=== PATIENT | female | born 1945 | race Caucasian/White ===

== ENCOUNTER 2019-07-15 08:24 | Outpatient (CLI) | payer MEDICARE ==
--- NOTE | 2019-07-15 10:17 | MMO ---
Bilateral MAMMO Bilat Diag DDI+LISA. CLINICAL HISTORY: Patient is 74 years old and is seen for diagnostic exam and palpable abnormality in the left breast. The patient has no family history of breast cancer. The patient has no personal history of cancer. The patient has a history of left Excisional Biopsy in August, - Benign. VIEWS: The views performed were: bilateral craniocaudal with tomosynthesis; bilateral mediolateral oblique with tomosynthesis; and bilateral mediolateral with tomosynthesis. FILMS COMPARED: The present examination has been compared to prior imaging studies performed at [facility] on 06/02/2014, 05/28/2017 and 07/15/2019. This study has been interpreted with the assistance of computer-aided detection. MAMMOGRAM FINDINGS: Finding 1: There are stable benign appearing calcifications seen in both breasts. Finding 2: There are stable focal asymmetries with circumscribed margins seen in both breasts. Finding 3: There is a new irregular mass measuring 15 millimeters with spiculated margins seen in the anterior region of the left breast at 4 o'clock. Mass is the palpble finding. Finding 4: There is a new mass measuring 6 millimeters with indistinct margins seen in the anterior region of the right breast at 6 o'clock. IMPRESSION: FINDING 1: STABLE CALCIFICATIONS IN BOTH BREASTS ARE BENIGN. FINDING 2: STABLE FOCAL ASYMMETRIES IN BOTH BREASTS ARE BENIGN. FINDING 3: NEW MASS IN THE LEFT BREAST IS SUSPICIOUS. AN ULTRASOUND-GUIDED BREAST BIOPSY IS RECOMMENDED. SOLID IRREGULAR MASS ON ULTRASOUND FINDING 4: NEW MASS IN THE RIGHT BREAST IS SUSPICIOUS. AN ULTRASOUND-GUIDED BREAST BIOPSY IS RECOMMENDED. SOLID IRREGULAR MASS ON ULTRASOUND. THE RESULTS OF THIS EXAM WERE SENT TO THE PATIENT. ACR BI-RADS Category 4 - Suspicious abnormality - biopsy should be considered MAMMOGRAPHY NOTE: 1. A negative mammogram report should not delay a biopsy if a dominant of clinically suspicious mass is present. 2. Approximately 10% to 15% of breast cancers are not detected by mammography. 3. Adenosis and dense breasts may obscure an underlying neoplasm. Reported by: NAHID ENCARNACION MD Electonically Signed: [id number]
--- NOTE | 2019-07-15 11:11 | ULT ---
RIGHT BREAST ULTRASOUND LIMITED: HISTORY: Right breast ultrasound was performed with attenuation to an asymmetric density seen on today's mammo gram. FINDINGS: The right breast was evaluated in the 6 o'clock region with a poorly circumscribed solid gasper measurin g 0.5 x 0.8 x 0.8 cm demonstrated in the 6 o'clock position 2 cm from the nipple. I feel that this m ass does correspond to the mammographic area of concern. Given its appearance on ultrasound and mamm ogram, ultrasound-guided biopsy is recommended. IMPRESSION: BIRADS category 4, suspicious finding. Ultrasound-guided biopsy of the poorly circumscribed mass at 6 o'clock 2 cm from the nipple is recommended. The patient was notified of these findings and proceeded to scheduling for this ultrasound-guided bio psy. CODE CR POS: OFF
--- NOTE | 2019-07-15 11:13 | ULT ---
LEFT BREAST ULTRASOUND: HISTORY: The patient presents with a palpable finding in the left breast. Assess with diagnostic mammogram and left breast ultrasound. FINDINGS: In the region of the palpable finding, at 4 o'clock, 3 cm from the nipple, there is a poorly circumsc ribed, irregular, solid mass, measuring 0.9 x 1.2 x 1.4 cm in size. This corresponds to the abnormal mass on mammogram, as well as the palpable finding. The left axilla was evaluated and no abnormal enl arged lymph nodes were demonstrated. IMPRESSION: BI-RADS category 4 - suspicious finding. Ultrasound-guided biopsy is recommended. After discussion of this with the patient, the patient proceeded to being scheduled for ultrasound gu ided biopsy. POS: OFF
== END 2019-07-15 08:25 | disposition home or self-care (01) ==
LOC: BICMAMMO 08:24
PROVIDERS: ATTEND Family Medicine
DX: N63.20 Unspecified lump in the left breast, unspecified quadrant (principal); R92.1 Mammographic calcification found on diagnostic imaging of breast; N64.89 Other specified disorders of breast; N63.10 Unspecified lump in the right breast, unspecified quadrant
CPT/HCPCS: 76642 ×2; 77066; G0279

== ENCOUNTER → 2019-07-22 | Day surgery (SDC) | payer MEDICARE ==
--- NOTE | 2019-07-22 14:07 | MMO ---
Right Breast MAMMO Unilat Diag DDI RT. CLINICAL HISTORY: Patient is 74 years old and is seen for diagnostic exam. The patient has no family history of breast cancer. The patient has no personal history of cancer. The patient has a history of left Ultrasound Guided Core Biopsy in July,, right Ultrasound Guided Core Biopsy in July, and left Excisional Biopsy in August, - Benign. VIEWS: The views performed were: right craniocaudal and right mediolateral oblique. FILMS COMPARED: The present examination has been compared to prior imaging studies performed at [facility] on 07/15/2019 and 07/22/2019. This study has been interpreted with the assistance of computer-aided detection. MAMMOGRAM FINDINGS: There are scattered fibroglandular densities. Small mass again noted in the 6 o'clock position of the right breast. There is a post biopsy clip immediately adjacent to the lesion following US guided biopsy. IMPRESSION: FINDING IN THE RIGHT BREAST IS SUSPICIOUS. BIOPSY IS RECOMMENDED. THE RESULTS OF THIS EXAM WERE SENT TO THE PATIENT. ACR BI-RADS Category 4 - Suspicious abnormality - biopsy should be considered MAMMOGRAPHY NOTE: 1. A negative mammogram report should not delay a biopsy if a dominant of clinically suspicious mass is present. 2. Approximately 10% to 15% of breast cancers are not detected by mammography. 3. Adenosis and dense breasts may obscure an underlying neoplasm. Reported by: PAVAN ROLAND MD Electonically Signed: [id number]
--- NOTE | 2019-07-22 14:10 | MMO ---
Left Breast MAMMO Unilat Diag DDI LT. CLINICAL HISTORY: Patient is 74 years old and is seen for diagnostic exam. The patient has no family history of breast cancer. The patient has no personal history of cancer. The patient has a history of left Ultrasound Guided Core Biopsy in July,, right Ultrasound Guided Core Biopsy in July, and left Excisional Biopsy in August, - Benign. VIEWS: The views performed were: left craniocaudal and left mediolateral oblique. FILMS COMPARED: The present examination has been compared to prior imaging studies performed at [facility] on 07/15/2019 and 07/22/2019. This study has been interpreted with the assistance of computer-aided detection. MAMMOGRAM FINDINGS: There are scattered fibroglandular densities. There is a stable irregular mass with associated biopsy clip seen in the left breast. IMPRESSION: STABLE MASS IN THE LEFT BREAST IS SUSPICIOUS. BIOPSY IS RECOMMENDED. THE RESULTS OF THIS EXAM WERE SENT TO THE PATIENT. ACR BI-RADS Category 4 - Suspicious abnormality - biopsy should be considered MAMMOGRAPHY NOTE: 1. A negative mammogram report should not delay a biopsy if a dominant of clinically suspicious mass is present. 2. Approximately 10% to 15% of breast cancers are not detected by mammography. 3. Adenosis and dense breasts may obscure an underlying neoplasm. Reported by: PAVAN ROLAND MD Electonically Signed: [id number]
--- NOTE | 2019-07-22 15:53 | ULT ---
ULTRASOUND GUIDED CORE BIOPSY RIGHT BREAST MASS ULTRASOUND GUIDED CORE BIOPSY LEFT BREAST MASS: 07/22/19 HISTORY: Suspicious hypoechoic masses noted bilaterally for which ultrasound guided core biopsy was recommende d. FINDINGS: Informed consent obtained prior to the procedure. Preprocedural imaging demonstrates a hypoechoic irregular solid mass at the 6 o'clock position of the right breast 2 cm from the nipple. Skin overlying this lesion was prepped and draped in the normal s terile fashion and anesthetized with 1% buffered lidocaine. With direct sonographic guidance, three 1 2 gauge core biopsies were obtained through the lesion. Post biopsy clip was placed. Then, assessment of the left breast demonstrates an irregular hypoechoic lesion at the 4 o'clock posi tion 3 cm from the nipple measuring up to approximately 1 cm. Skin overlying this region was prepped and draped in a normal sterile fashion and anesthetized with 1% buffered lidocaine. With direct sonog raphic guidance, three 12 gauge core biopsies were obtained. A post biopsy clip was placed. Post procedural mammogram demonstrates proper placement/location of both post biopsy clips. The patie nt tolerated the procedure well. No postprocedural complications. IMPRESSION: 1. Successful ultrasound guided core biopsy of right breast mass at 6 o'clock position. 2. Successful ultrasound guided core biopsy of left breast mass at 4 o'clock position. POS: OFF
== END ==
LOC: BICULT 12:47
PROVIDERS: ATTEND Family Medicine
PROC: 0H9V3ZX Drainage of Bilateral Breast, Percutaneous Approach, Diagnostic (ICD-10-PCS; principal; 2019-07-22)
DX: C50.512 Malignant neoplasm of lower-outer quadrant of left female breast (principal); D24.1 Benign neoplasm of right breast
CPT/HCPCS: 19083; 88305; 88341; 88342

== ENCOUNTER 2019-08-06 09:16 | Outpatient (CLI) | payer MEDICARE ==
--- NOTE | 2019-08-06 12:46 | RAD ---
EXAM: Chest 2 views: HISTORY: Preoperative radiograph COMPARISON: 08/02/2011 FINDINGS: There is a normal-sized cardiomediastinal silhouette. There is no evidence of consolidation, mass, or pleural effusion. The bones are unremarkable. IMPRESSION: No evidence of acute cardiopulmonary disease
[2019-08-06 12:51] LABS: #Eosinphils 0.2 thou/uL (0.0-0.7); #Lymphocytes 1.9 thou/uL (1.20-3.40); #Monocytes 0.4 thou/uL (0.11-0.59); #Neutrophils 4.2 thou/uL (1.40-6.50); %Basophils 0.4 % (0.0-1.0); %Eosinophils 2.9 % (0.0-10.0); %Lymphocytes 28.3 % (21.0-51.0); %Monocytes 6.1 % (0.0-10.0); %Neutrophils 62.4 % (42.0-75.0); Hemoglobin 15.3 g/dL (12.0-16.0); Mean Corpuscular HGB CONC 34.4 g/dL (32.0-36.0); Mean Corpuscular Hemoglobin 32.5 pg (27.0-31.0); Mean Corpuscular Volume 94.3 fL (78.0-98.0); Mean Platelet Volume 8.7 fL (7.4-10.4); Platelet Count 240 thou/uL (130-400); RBC Distribution Width 11.6 % (11.5-14.5); Red Blood Cell (RBC) Count 4.72 mill/uL (4.20-5.40); White Blood Cell (WBC) Count 6.7 thou/uL (4.8-10.8)
[2019-08-06 13:22] LABS: ALT (SGPT) 22 U/L (8-55); AST (SGOT) 18 U/L (5-34); Albumin 4.5 g/dL (3.4-4.8); Alkaline Phosphatase 71 U/L (40-110); Anion Gap 14 mmol/L (10-20); BUN (Urea Nitrogen) 19 mg/dL (9.8-20.1); Bilirubin, Total 0.5 mg/dL (0.2-1.2); Calc. Creatinine Clearance 0 mL/min (70-130); Calcium 9.5 mg/dL (7.8-10.44); Carbon Dioxide 24 mmol/L (23-31); Chloride 108 mmol/L (98-107); Estimated GFR-MDRD 60; Globulin 2.8 g/dL (2.4-3.5); Glucose 236 mg/dL (83-110); Potassium 4.3 mmol/L (3.5-5.1); Protein, Total 7.3 g/dL (6.0-8.3); Sodium 142 mmol/L (136-145)
--- NOTE | 2019-08-09 18:57 | EKG ---
Test Reason : Blood Pressure : / mmHG Vent. Rate : 072 BPM Atrial Rate : 072 BPM P-R Int : 168 ms QRS Dur : 128 ms QT Int : 396 ms P-R-T Axes : 038 -41 049 degrees QTc Int : 433 ms Normal sinus rhythm Left axis deviation Left ventricular hypertrophy with QRS widening Abnormal ECG When compared with ECG of 16-NOV-2012 12:29, Minimal criteria for Septal infarct are no longer Present Confirmed by DESTINEE PAYNE, SRené ([id number]) on 08/09/2019 6:56:59 PM Referred By: ESTHER Confirmed By:DR. Nasreen FELIPE MD
== END 2019-08-06 09:17 | disposition home or self-care (01) ==
LOC: LABBT 09:16
PROVIDERS: ATTEND Specialist
DX: Z01.818 Encounter for other preprocedural examination (principal); N63.10 Unspecified lump in the right breast, unspecified quadrant
CPT/HCPCS: 71046; 80053; 85025; 93005; 93010

== ENCOUNTER 2019-08-11 06:44 | Day surgery (SDC) | payer MEDICARE ==
[2019-08-06 11:54] VITALS: BMI 29.1
--- NOTE | 2019-08-09 13:41 | HP ---
HISTORY OF PRESENT ILLNESS: Glendy is a 74-year-old female, whom I saw in 2012, where she had an inferior right breast ultrasound-guided biopsy followed by excisional biopsy revealing a papilloma. The patient now presents and has a left breast mass in lower outer quadrant that she can palpate. Subsequently underwent mammogram and ultrasounds and subsequent biopsies on July 15, 2019. Left breast ultrasound reveals a 0.9 x 1.2 x 1.4 cm mass or clot suspicious for malignancy and biopsy recommended. Diagnostic mammogram on 07/22/2019, reveals the same. Right breast ultrasound on 07/15/2019, reveals a 0.5 x 0.8 x 0.8 cm density at 6 o'clock position, 2 cm from nipple, corresponding to abnormal mammogram in the same area. Biopsy of the left breast reveals a mucinous adenocarcinoma papilloma. Pathology recommended further excision to make sure there is no malignancy in right. 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 In the right breast was having glandular papillary lesion, recommended further excision to assure absence of any . I have discussed with Dr. Marquis, who will see the patient preoperatively and tentatively plan next week mammographic needle localization of right breast lesion inferiorly and lymphoscintigraphy of left breast, axilla with subsequent excisional biopsy inferior right breast lesion in the area where the papilloma was previously resected several years ago as noted above. On the left breast, we will plan partial mastectomy, lower outer quadrant left breast for her mucinous adenocarcinoma with sentinel node biopsy, possible lymphadenectomy pending findings. She understands risks and benefits, and consents. We will obtain a CBC, comp met, chest x-ray, EKG prior. The patient is followed by Dr. Ahmet Espana. We will see Dr. Marquis preoperatively. Lesion of left breast is palpable. PAST MEDICAL HISTORY: Hyperlipidemia, hypertension, and diabetes mellitus. FAMILY HISTORY: Negative for breast cancer. ALLERGIES: NONE. PAST SURGICAL HISTORY: Colonoscopy, Dr. Peres in 2009 and 2004; EGD, esophageal dilatation in 2005; breast biopsy, right as described above; TAHBSO, Dr. Naresh due to spotting, performed by Dr. Pike on 05/12/2009; laparoscopic cholecystectomy performed in 2011; right breast biopsy that I performed in September 2012, five years ago. Dr. Ch performed a colonoscopy, polypectomy in November 2018. FAMILY HISTORY: Mother had melanoma and her grandmother had gastric cancer, otherwise unremarkable. SOCIAL HISTORY: Alcohol, rarely. 0, para 0. The patient is . Does have occasional wine. PHYSICAL EXAMINATION: VITAL SIGNS: Weight 175 pounds, height 64 inches, BMI 30, blood pressure 127/82, pulse 96, and temperature 97 degrees. HEAD, EARS, EYES, NOSE, AND THROAT: Unremarkable. LUNGS: Clear to auscultation. CARDIAC: Regular rate and rhythm without murmur or gallop. ABDOMEN: Soft and nontender. EXTREMITIES: Unremarkable. BREASTS: Both axilla without lymphadenopathy. Right breast without masses. Well-healed scar from previous excisional biopsy, right breast inferiorly. Left breast mass dimensions consistent with that described above from her ultrasound. The mass is mobile, lower outer quadrant, left breast. There is no skin or nipple areolar distortion. ASSESSMENT AND PLAN: 1. Left breast cancer, ER/KY positive, HER2 negative, dimensions as noted above. Plan partial mastectomy. Plan sentinel node biopsy after lymphoscintigraphy. She understands risks and benefits, consents. 2. Right breast density of similar pathology as biopsied years past. Plan mammo needle localization and wide local excision. She understands risks and benefits, consents outpatient surgery. She will follow up with me in the office in 3 to 5 five days for pathology. She will see Dr. Marquis preoperatively. Job ID: [id number]
[2019-08-11] MEDS ORDERED: ePHEDrine/0.9% NaCl/PF SYRINGE 50 mg/10 ml ONE ×2 (09:08)
[2019-08-11] MEDS ORDERED: Ondansetron PF 4 MG/2 ML Vial ONE (09:08)
[2019-08-11] MEDS ORDERED: PROPOFOL 200 MG/20 ML VIAL ONE (09:08)
[2019-08-11] MEDS ORDERED: Metoclopramide HCl 10 MG/2 ML VIAL ONE (09:08)
[2019-08-11] MEDS ORDERED: Lidocaine 1% PF 5 ML VIAL ONE (09:08)
[2019-08-11] MEDS ORDERED: Scopolamine 1.5 mg/72 hour Patch ONE (09:35)
[2019-08-11] MEDS ORDERED: Acetaminophen 500 MG TAB ONE (09:35)
[2019-08-11] MEDS ORDERED: Ketorolac Tromethamine 30 MG/ML VIAL ONE (09:35)
--- NOTE | 2019-08-11 09:43 | RAD ---
EXAM: Single view of the chest HISTORY: Preoperative radiograph COMPARISON: None FINDINGS: Single view of the chest shows a normal sized cardiomediastinal silhouette. There is no quentin dence of consolidation, mass, or pleural effusion. The bones are unremarkable. IMPRESSION: No evidence of acute cardiopulmonary disease
--- NOTE | 2019-08-11 09:50 | NM ---
LEFT BREAST LYMPHOSCINTIGRAPHY: INDICATION: Left breast cancer; preparation for left breast sentinel lymph node dissection. RADIOPHARMACEUTICAL: 0.399 mCi Technetium 99m filtered FC. TECHNIQUE: Informed consent was obtained. The region surrounding the left nipple areolar complex was cleansed with 0-alcohol swabs. Four separate aliquots for a total of 0.399 mCi of Technetium 99m filtered FC were administered in the subcutaneous tissues surrounding the left breast nipple complex. The left n ipple areola complex was then massaged and sequential planar images were obtained until identified of the 1st draining sentinel lymph node within the anterior left axillary fossa. The node was marked o n the skin by the hydro technician. The patient tolerated the injection without difficulty. The patient w as escorted to the preoperative holding area for the patient's breast procedures. IMPRESSION: Successful left breast scintigraphy. POS: LONNY
[2019-08-11] MEDS ORDERED: Lidocaine 1% w/Epinephrine 1:100K 20 ML VIAL ONE ×2 (09:54→09:57)
[2019-08-11] MEDS ORDERED: Bupivacaine 0.25% HCL 30 ML VIAL ONE ×2 (09:54→09:57)
[2019-08-11] MEDS ORDERED: Isosulfan Blue 50 MG/5 ML VIAL ONE (09:54)
[2019-08-11] MEDS ORDERED: Fentanyl 100 MCG/2 ML VIAL ONE (10:07)
--- NOTE | 2019-08-11 11:34 | MMO ---
RIGHT BREAST SURGICAL SPECIMEN: INDICATION: Right breast specimen from needle localization and excision. COMPARISON: Diagnostic evaluation 07/22/2019 and needle localization mammogram dated 08/11/2019. FINDINGS: The previously submitted specimen contains a focal mass, biopsy clip, and portions of the wire. IMPRESSION: BIRADS category 4 - suspicious abnormality. Status post needle localization and surgical excision. Findings were called to Dr. Carey's room at 11:18 a.m. on 08/11/2019. CODE CR POS: SJPancho
--- NOTE | 2019-08-11 11:57 | MMO ---
SINGLE MAMMOGRAPHIC IMAGING OF THE SURGICAL SPECIMEN FROM THE LEFT BREAST: COMPARISON: Diagnostic evaluation of the left breast dated 07/22/2019. FINDINGS: The submitted surgical specimen contains a spiculated mass and biopsy clip. IMPRESSION: BIRADS category 6 - Known malignancy. Appropriate action could be taken. Findings concerning the specimen of the left and right breast were called to Dr. Carey in the operat ing room at 11:58 a.m. on 08/11/2019. CODE CR POS: LONNY
[2019-08-11] MEDS ORDERED: HYDROcodone/Acetaminophen 5/325 mg Tablet ONE (13:58)
--- NOTE | 2019-08-11 15:16 | OP ---
DATE OF PROCEDURE: 08/11/2019 PREOPERATIVE DIAGNOSES: 1. Right breast mass, inferior right breast, 5 to 6 o'clock Radian. 2. Left breast 5 to 6 o'clock Radian, approximately 2-3 cm from the areolar border, mucinous adenocarcinoma. 3. Positive sentinel node. POSTOPERATIVE DIAGNOSES: 1. Right breast mass, inferior right breast, 5 to 6 o'clock Radian. 2. Left breast 5 to 6 o'clock Radian, approximately 2-3 cm from the areolar border, mucinous adenocarcinoma. 3. Positive sentinel node. PROCEDURES PERFORMED: 1. Mammographically needle localized excisional biopsy of right breast mass, inferior right breast with re-resection of superior new margin as the mass was appreciated to be close to the superior margin. 2. Lymphoscintigraphy of left axilla, identifying the sentinel node. 3. Lymphazurin blue injection. 4. [place] node biopsy, touch prep positive. 5. Axillary node dissection. 6. #19 Gold YONATAN drain. 7. Inferior areolar incision for a wide local excision/partial mastectomy of left breast inferior slightly outer left breast cancer. ANESTHESIA: General and local with 0.25% Marcaine 60 mL, mixed with 1% Xylocaine with epinephrine 30 mL, total volume used. DESCRIPTION OF PROCEDURE: The patient was taken to the operating room, where under general anesthesia, Lymphazurin blue injected in the lateral areolar border, 2 mL used to inject subdermally. Both breasts were prepared with ChloraPrep and draped in routine fashion. Lymphoscintigraphy had been performed, identifying a sentinel node. A howard had been made on the medial left breast, suggesting possible internal mammary node. Local anesthetic was infiltrated in the skin and subcutaneous tissue about all operative sites. Inferior areolar incision was made on the right, carried down to skin and subcutaneous tissue, localizing wire brought in the wound. Core breast tissue dissected free, identifying and visualizing the mass, re-resecting the superior margin, and marking it for a new margin. The resected specimen was marked for pathology identification. Hemostasis was gained with cautery. Subcutaneous tissue was approximated with 3-0 Monocryl, skin with subdermal 4-0 Monocryl, and biopsy cavity filled with local anesthetic mixture and Dermabond applied. Attention was then turned to the left axilla, where a lower left axillary incision was made. An incision carried down to the deep fascia, identifying the sentinel node. Both by Neoprobe counts to 180 and color blue. There was a separate node excised, slightly larger, submitted, medium sentinel node color blue and with increased counts by the Neoprobe, it was excised and ex vivo counts were 180. The resected bed have counts of 5 to 10, indicating resection of the sentinel node. The sentinel node was submitted and noted to be positive on touch prep for metastatic disease. Incision enlarged and local anesthetic was infiltrated in the skin and subcutaneous tissue. The dissection carried out for axillary node dissection, identifying the long thoracic thoracodorsal nerves, keep them free of harm, dissecting the axillary specimen with serratus, anterior pectoralis major and minor, and the latissimus up to the subclavian vein, dividing branches between clips and other smaller structures between clips, marking the apex and axillary resection specimen with clips, submitted to Pathology. Good hemostasis noted. A #19 Gold YONATAN drain brought out through an inferior stab incision, secured with 3-0 nylon suture, and Mastisol and Opsite applied. Subcutaneous tissue was approximated with 3-0 Monocryl, skin with subdermal 4-0 Monocryl. Local anesthetic was infiltrated in the skin and subcutaneous tissue. Inferior areolar incision was made over the left breast, carried down to the skin and subcutaneous tissue at the inferior slightly lateral areolar border, carried down to skin and subcutaneous tissue, wide margins were resected for the palpable mass. Wide local excision/partial mastectomy undertaken, resecting a large specimen, marking margins appropriately with suture silk and Prolene, submitted to mammography, assured in retrieval of the marking biopsy clip in the spiculated mass. Hemostasis gained with the cautery. Subcutaneous tissue was approximated with 3-0 Monocryl, skin with subdermal 4-0 Monocryl, and [place] glue applied. Local anesthetic had been infiltrated in the biopsy cavities of the right and left breasts for postoperative pain control. The patient tolerated the procedure well Kaleb wrap applied to give the rest compression. The patient tolerated the procedure well. Job ID: [id number]
--- NOTE | 2019-08-11 16:19 | MMO ---
MAMMOGRAPHIC GUIDED NEEDLE LOCALIZATION PREPROCEDURE DIAGNOSIS: Right breast papilloma PROCEDURE: Needle localization of right breast biopsy clip RETAIL EQUIPMENT ASSOCIATE: Nadya ANESTHESIA: 5 mL of buffered 1% lidocaine with epinephrine TECHNIQUE: Prior to the procedure, the risks and benefits of a needle localization of the biopsy clip was explai [place] with the patient and full consent was obtained. The prior mammograms were reviewed showing the biopsy clip in the inferior aspect of the right breast. Approach from inferior was performed. The patient was placed in compression with the localization gri d in place. The breast was then prepped with Betadine. Lidocaine was used to anesthetize the skin and soft tissues of the breast. A 3 cm [place] needle was th en placed perpendicular to the skin within the grid at the area of best entry to localize the biopsy clip. The wire was deployed. A orthogonal view was obtained showing the needle and wire in good position in relation to the biopsy clip. The needle and wire were then secured to the patient. The patient was then sent back to day surgery for eventual surgical excision. A specimen radiograph was obtained while the patient was on the operating room table. The biopsy clip was in the center of the surgical specimen. This was communicated to the operating room at the time of the procedure.
== END 2019-08-11 14:43 | disposition home or self-care (01) ==
LOC: SDC 06:44
PROVIDERS: ATTEND Specialist
PROC: 0HBT0ZZ Excision of Right Breast, Open Approach (ICD-10-PCS; principal; 2019-08-11)
PROC: 0HBU0ZZ Excision of Left Breast, Open Approach (ICD-10-PCS; 2019-08-11)
DX: C50.512 Malignant neoplasm of lower-outer quadrant of left female breast (principal); N60.11 Diffuse cystic mastopathy of right breast; I10 Essential (primary) hypertension; E11.9 Type 2 diabetes mellitus without complications; E78.5 Hyperlipidemia, unspecified; K21.9 Gastro-esophageal reflux disease without esophagitis; Z17.0 Estrogen receptor positive status [ER+]; Z79.82 Long term (current) use of aspirin; Z79.84 Long term (current) use of oral hypoglycemic drugs; Z79.899 Other long term (current) drug therapy
CPT/HCPCS: 19101; 19281; 19301; 38525; 71045; 76098; 78195; 88307; 88331; 88334; 88341; 88342; A9541; Q9968; J1885; J2001; J2405; J2704; J2765; J3010; S0020

== ENCOUNTER 2019-09-01 09:26 | Day surgery (SDC) | payer MEDICARE ==
[2019-08-31 10:07] VITALS: BMI 29.1
[2019-09-01] MEDS ORDERED: Ketorolac Tromethamine 30 MG/ML VIAL ONE (10:05)
[2019-09-01] MEDS ORDERED: Acetaminophen 500 MG TAB ONE (10:06)
[2019-09-01] MEDS ORDERED: Scopolamine 1.5 mg/72 hour Patch ONE (10:06)
[2019-09-01] MEDS ORDERED: EPHEDRINE 25 MG/5 ML SYRINGE ONE (10:39)
[2019-09-01] MEDS ORDERED: PROPOFOL 200 MG/20 ML VIAL ONE (10:39)
[2019-09-01] MEDS ORDERED: Lidocaine 1% PF 5 ML VIAL ONE (10:39)
[2019-09-01] MEDS ORDERED: Ondansetron PF 4 MG/2 ML Vial ONE (10:39)
[2019-09-01] MEDS ORDERED: Bupivacaine PF 0.5% 30 ML VIAL ONE (12:05)
[2019-09-01] MEDS ORDERED: Lidocaine 1% w/Epinephrine 1:100K 20 ML VIAL ONE (12:05)
[2019-09-01] MEDS ORDERED: Fentanyl 100 MCG/2 ML VIAL ONE (12:07)
--- NOTE | 2019-09-01 15:49 | OP ---
DATE OF PROCEDURE: 09/01/2019 PREOPERATIVE DIAGNOSIS: Left breast cancer with positive anterior/margin. POSTOPERATIVE DIAGNOSIS: Left breast cancer with positive anterior/superior margin. PROCEDURE PERFORMED: Reexcision of anterior/superior margin, left breast, reexcision of margin. ANESTHESIA: General, local with 0.25% Marcaine 60 mL mixed with 1% Xylocaine with epinephrine 20 mL, total volume used. DESCRIPTION OF PROCEDURE: The patient was taken to the operating room, where under general anesthesia, left breast prepared with ChloraPrep and draped in routine fashion. Incision was made through the old infra-areolar scar, carried down to skin and subcutaneous tissue. No biopsy cavity appreciated, evacuated with suction, irrigated. Good hemostasis noted. Anterior margin excised, excising the anterior margin and carrying the excision superiorly, marking the new margin with a suture, excising this, submitted to Pathology. Hemostasis was gained with the cautery. Subcutaneous tissue was approximated with 3-0 Monocryl, skin with subdermal 4-0 Monocryl, and [place] glue applied after local anesthetic was infiltrated in the skin and subcutaneous tissue about the operative site and also infiltrating the biopsy cavity. The patient tolerated the procedure well. Job ID: [id number]
== END 2019-09-01 15:45 | disposition home or self-care (01) ==
LOC: SDC 09:26
PROVIDERS: ATTEND Specialist
PROC: 0HBU0ZZ Excision of Left Breast, Open Approach (ICD-10-PCS; principal; 2019-09-01)
DX: D24.2 Benign neoplasm of left breast (principal); I10 Essential (primary) hypertension; E78.5 Hyperlipidemia, unspecified; E11.9 Type 2 diabetes mellitus without complications; K21.9 Gastro-esophageal reflux disease without esophagitis; Z79.84 Long term (current) use of oral hypoglycemic drugs; Z79.899 Other long term (current) drug therapy; Z85.3 Personal history of malignant neoplasm of breast; Z90.12 Acquired absence of left breast and nipple
CPT/HCPCS: 88307; J0690; J1885; J2001; J2405; J2704; J3010; S0020

== ENCOUNTER 2020-08-14 13:54 | Outpatient (CLI) | payer MEDICARE ==
--- NOTE | 2020-08-14 14:34 | MMO ---
Bilateral MAMMO Bilat Diag [facility]. CLINICAL HISTORY: Patient is 75 years old and is seen for diagnostic exam. The patient has no family history of breast cancer. 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 The patient has a history of left Ultrasound Guided Core Biopsy in July,, right Ultrasound Guided Core Biopsy in July, and left Lumpectomy in August, - Benign. VIEWS: The views performed were: bilateral craniocaudal with tomosynthesis; bilateral mediolateral oblique with tomosynthesis; and bilateral mediolateral with tomosynthesis. FILMS COMPARED: The present examination has been compared to prior imaging studies performed at [facility] on 07/15/2019 and 07/22/2019. This study has been interpreted with the assistance of computer-aided detection. MAMMOGRAM FINDINGS: There are scattered fibroglandular densities. Benign calcifications are noted bilaterally. Nodularity is stable. There are left sided post-operative changes. There are no suspicious masses, suspicious calcifications, or new areas of architectural distortion. IMPRESSION: THERE IS NO MAMMOGRAPHIC EVIDENCE OF MALIGNANCY. A ROUTINE FOLLOW-UP MAMMOGRAM IN 1 YEAR IS RECOMMENDED. THE RESULTS OF THIS EXAM WERE SENT TO THE PATIENT. ACR BI-RADS Category 2 - Benign finding MAMMOGRAPHY NOTE: 1. A negative mammogram report should not delay a biopsy if a dominant of clinically suspicious mass is present. 2. Approximately 10% to 15% of breast cancers are not detected by mammography. 3. Adenosis and dense breasts may obscure an underlying neoplasm. Reported by: GAYLA KINGSLEY MD Electonically Signed: [id number]
== END 2020-08-14 13:55 | disposition home or self-care (01) ==
LOC: BICMAMMO 13:54
PROVIDERS: ATTEND Internal Medicine Hematology & Oncology
DX: Z08 Encounter for follow-up examination after completed treatment for malignant neoplasm (principal); Z85.3 Personal history of malignant neoplasm of breast
CPT/HCPCS: 77066; G0279

== ENCOUNTER 2021-04-06 14:49 | Outpatient (CLI) | payer MEDICARE | END 2021-04-06 14:50 | disposition home or self-care (01) | LOC: BICMAMMO 14:49 | PROVIDERS: ATTEND Internal Medicine Hematology & Oncology | DX: M85.851 Other specified disorders of bone density and structure, right thigh (principal); M85.852 Other specified disorders of bone density and structure, left thigh | CPT/HCPCS: 77080 ==

== ENCOUNTER 2021-05-03 14:55 | Outpatient (CLI) | payer MEDICARE | END 2021-05-03 14:56 | disposition home or self-care (01) | LOC: BICRAD 14:55 | PROVIDERS: ATTEND Internal Medicine Hematology & Oncology | DX: M25.532 Pain in left wrist (principal); M25.512 Pain in left shoulder; M19.032 Primary osteoarthritis, left wrist; M19.012 Primary osteoarthritis, left shoulder ==

== ENCOUNTER 2021-08-21 08:15 | Outpatient (CLI) | payer MEDICARE | END 2021-08-21 08:16 | disposition home or self-care (01) | LOC: BICMAMMO 08:15 | PROVIDERS: ATTEND Specialist | DX: Z08 Encounter for follow-up examination after completed treatment for malignant neoplasm (principal); Z85.3 Personal history of malignant neoplasm of breast | CPT/HCPCS: 77066; G0279 ==

== ENCOUNTER 2022-09-17 14:05 | Outpatient (CLI) | payer MEDICARE | END 2022-09-17 14:06 | disposition home or self-care (01) | LOC: BICMAMMO 14:05 | PROVIDERS: ATTEND Specialist | DX: Z12.31 Encounter for screening mammogram for malignant neoplasm of breast (principal); R92.1 Mammographic calcification found on diagnostic imaging of breast; Z91.89 Other specified personal risk factors, not elsewhere classified; Z98.890 Other specified postprocedural states; Z85.3 Personal history of malignant neoplasm of breast | CPT/HCPCS: 77063; 77067 ==

== ENCOUNTER 2022-09-19 13:08 | Outpatient (CLI) | payer MEDICARE | END 2022-09-19 13:09 | disposition home or self-care (01) | LOC: BICMAMMO 13:08 | PROVIDERS: ATTEND Specialist | DX: R92.1 Mammographic calcification found on diagnostic imaging of breast (principal) | CPT/HCPCS: 77065; G0279 ==

== ENCOUNTER 2023-09-19 13:28 | Outpatient (CLI) | payer MEDICARE | END 2023-09-19 13:29 | disposition home or self-care (01) | LOC: BICMAMMO 13:28 | PROVIDERS: ATTEND Specialist | DX: Z12.31 Encounter for screening mammogram for malignant neoplasm of breast (principal); Z85.3 Personal history of malignant neoplasm of breast | CPT/HCPCS: 77063; 77067 ==

== ENCOUNTER 2023-11-18 06:02 | Day surgery (SDC) | payer MEDICARE ==
[2023-11-17 14:51] VITALS: BMI 27.4
== END 2023-11-18 09:10 | disposition home or self-care (01) ==
LOC: SDC 06:02
PROVIDERS: ATTEND Ophthalmology Retina Specialist
PROC: 08T53ZZ Resection of Left Vitreous, Percutaneous Approach (ICD-10-PCS; principal; 2023-11-18)
DX: H33.022 Retinal detachment with multiple breaks, left eye (principal)
CPT/HCPCS: 67040; 93005; J3010; 67025; 93010; J0171; J0690; J2250; J2704; J3301; J3490